=== PATIENT | male | born 1990 | race Caucasian/White ===

== ENCOUNTER → 2018-06-26 | Outpatient (CLI) | payer OTHER ==
--- NOTE | 2018-06-29 09:09 | TST ---
[place] [address] [facility] STRESS TEST Name: CHAGO GARLAND Room: [facility]#: [id number] Admission: 06/26/18 Attend Phys: Dragan Del Toro Discharge: Date of : 89 Date of Service: 06/26/18 1213 Report #: [id number] THIS REPORT FOR: //name// CC: Dragan Del Toro DO DATE OF SERVICE: 06/26/2018 EXERCISE STRESS TEST INDICATIONS: Exercise stress test was requested in this patient with a history of chest pain. RESULTS: The patient was exercised on a Harish protocol from a pretest heart rate of 68, blood pressure 130/90. The patient was able to exercise for 10 minutes and 30 seconds achieving a peak heart rate of 197, which was greater than 90% of maximum predicted heart rate for the patient's age. Peak blood pressure was 216/60. In recovery, the patient had heart rate of 122, blood pressure 128/80. The patient denied chest pains. His exercise was terminated because of shortness of breath. The patient's resting ECG showed a normal sinus rhythm with no significant ST-T nor T-wave change noted at baseline. With exercise, no arrhythmia was noted. There was no ischemic ST nor T-wave change noted with exercise. IMPRESSION: 1. Excellent exercise tolerance. 2. No chest pain with exercise. 3. No ischemic ST segment changes noted with exercise. 4. Negative exercise stress test for myocardial ischemia. 5. Low risk exercise stress test for predicting future cardiac events. <ELECTRONICALLY SIGNED> By: Alvin Anderson MD, FACC 06/29/18 0909 1213 0525 Glen Hernandez MD, FACC /nt
== END ==
LOC: M.CRD 11:00
DX: R07.9 Chest pain, unspecified (principal); R00.0 Tachycardia, unspecified; R06.02 Shortness of breath